=== PATIENT | female | born 2000 | race Caucasian/White ===

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

== ENCOUNTER 2019-12-01 10:57 | Emergency (ER) | payer OTHER ==
[2019-12-01 11:05] VITALS: BP 105/72
[2019-12-01] MEDS ORDERED: ACETAMINOPHEN TAB 500 MG TAB PO STA (11:31)
[2019-12-01] MEDS ORDERED: IBUPROFEN 600 MG TAB PO STA (11:31)
[2019-12-01 11:37] VITALS: RESP 20
--- NOTE | 2019-12-01 11:41 | ED ---
General Adult HPI - General Source: patient, RN notes reviewed Mode of arrival: ambulatory Limitations: no limitations <Luis Powell - Last Filed: 12/01/19 12:54> <Emilia Lawrence - Last Filed: 12/03/19 00:31> - General Chief complaint: ENT Stated complaint: Throat pain Time Seen by Provider: 12/01/19 11:13 - History of Present Illness Initial comments: 19-year-old female with a past medical history of asthma presents to the emergency department for a chief complaint of cough and sore throat. Patient states that she has had a cough for the past 2 days. It is nonproductive. She does not have shortness of breath. She also has a sore throat. States that her sore throat is the most bothersome symptom. Patient denies neck stiffness. Denies difficulty swallowing but does state it is painful to swallow. Denies difficulty breathing. No trismus or drooling. No stridor. Patient did not notice fevers at home but is noted to have a low-grade fever in the emergency room. She does not have any travel history. No known sick contacts. Patient has no other complaints at this time including shortness of breath, chest pain, abdominal pain, nausea or vomiting, headache, or visual changes. (Luis Powell) - Related Data Home Medications Medication Instructions Recorded Confirmed Albuterol Sulfate [Ventolin HFA] 2 puff INHALATION RT-QID PRN 12/01/19 12/01/19 Previous Rx's Medication Instructions Recorded Amoxicillin 875 mg PO Q12HR #20 tablet 12/01/19 Allergies Allergy/AdvReac Type Severity Reaction Status Date / Time Fish Containing Products Allergy Unknown Rash/Hives Verified 12/01/19 12:10 meningococcal vaccine A and C Allergy Unknown Swelling Verified 12/01/19 12:10 iodine Allergy Rash/Hives Verified 12/01/19 12:10 shellfish derived [Shellfish] Allergy Rash/Hives Verified 12/01/19 12:10 Review of Systems ROS Other: All systems not noted in ROS Statement are negative. <Luis Powell - Last Filed: 12/01/19 12:54> ROS Other: All systems not noted in ROS Statement are negative. <Emilia Lawrence - Last Filed: 12/03/19 00:31> ROS Statement: Those systems with pertinent positive or pertinent negative responses have been documented in the HPI. Past Medical History Past Medical History: Asthma History of Any Multi-Drug Resistant Organisms: None Reported Past Surgical History: No Surgical Hx Reported Past Anesthesia/Blood Transfusion Reactions: No Reported Reaction Past Psychological History: Depression Smoking Status: Current every day smoker Past Alcohol Use History: None Reported Past Drug Use History: None Reported - Past Family History Mother Family Medical History: Asthma Additional Family Medical History / Comment(s): previous stroke <Luis Powell - Last Filed: 12/01/19 12:54> General Exam Limitations: no limitations General appearance: alert, in no apparent distress Head exam: Present: atraumatic, normocephalic, normal inspection Eye exam: Present: normal appearance, PERRL, EOMI. Absent: scleral icterus, conjunctival injection, periorbital swelling ENT exam: Present: normal exam, mucous membranes moist, TM's normal bilaterally, normal external ear exam. Absent: normal oropharynx (Patient does have bilateral tonsillar exudates. Uvula is midline. Tonsillar pillars are symmetric. There is no evidence for abscess.) Neck exam: Present: normal inspection, full ROM. Absent: tenderness, meningismus, lymphadenopathy Respiratory exam: Present: normal lung sounds bilaterally. Absent: respiratory distress, wheezes, rales, rhonchi, stridor Cardiovascular Exam: Present: regular rate, normal rhythm, normal heart sounds. Absent: systolic murmur, diastolic murmur, rubs, gallop, clicks GI/Abdominal exam: Present: soft, normal bowel sounds. Absent: distended, tenderness, guarding, rebound, rigid Neurological exam: Present: alert Psychiatric exam: Present: normal affect, normal mood <Luis Powell P - Last Filed: 12/01/19 12:54> Course Vital Signs 12/01/19 12/01/19 12/01/19 11:03 11:31 13:20 Temperature 100.0 F H 98.0 F Pulse Rate 101 H 100 Respiratory 18 20 20 Rate Blood Pressure 105/72 O2 Sat by Pulse 99 100 Oximetry Medical Decision Making <Luis Powell - Last Filed: 12/01/19 12:54> <Emilia Lawrence - Last Filed: 12/03/19 00:31> - Medical Decision Making Vitals are stable although patient does have a low-grade temperature of 100.0. Reflexive tachycardia likely. She is 99% on room air. She is in no acute distress. She is resting comfortably sitting at a chair beside the bed. Exam did reveal bilateral tonsillar exudates without any evidence of peritonsillar abscess. Strep is negative. However given tonsillar exudates patient will be treated and culture will be sent to the lab. Chest x-ray shows no acute process. Patient will be given a dose of Decadron given her history of asthma as well as the pharyngitis. I did discuss following up with primary care. If patient should have any worsening symptoms she is to return here to the emergency room. (Luis Powell) I was available for consultation in the emergency department. The history and p hysical exam were done by the midlevel provider. I was consulted for this patients care. I reviewed the case with the midlevel provider and based on their presentation of the patient, I agree with the assessment, medical decision making and plan of care as documented. Chart was dictated using [employer] dictation software. Attempts were made to correct any dictation errors however some typographical errors may persist. Patient was seen during a national state of emergency due to the Covid-19 pandemic. (Emilia Lawrence) - Lab Data Lab Results 12/01/19 12/01/19 Range/Units 11:30 11:30 Coronavirus (PCR) Not Detected (Not Detected) Group A Strep Rapid Negative (Negative) Disposition Is patient prescribed a controlled substance at d/c from ED?: No Time of Disposition: 12:57 <Luis Powell - Last Filed: 12/01/19 12:54> <Emilia Lawrence - Last Filed: 12/03/19 00:31> Clinical Impression: Pharyngitis Disposition: HOME SELF-CARE Condition: Good Instructions (If sedation given, give patient instructions): Pharyngitis (ED) Additional Instructions: Please take antibiotic as directed. These were prescribed to your pharmacy electronically. Please try warm liquids for comfort. Take Tylenol for pain and fever. You may also take [id number]-[id number] cold medications but make sure not to take too much Tylenol with these. Follow up with primary care in 1-2 days. Return here to the emergency room should you have any worsening symptoms. Prescriptions: Amoxicillin 875 mg PO Q12HR #20 tablet Referrals: Gale Villanueva MD [REFERRING] - 1-2 days
--- NOTE | 2019-12-01 12:44 | XR ---
EXAMINATION TYPE: XR chest 1V portable DATE OF EXAM: 12/01/2019 COMPARISON: 05/16/2018 HISTORY: Chest pain TECHNIQUE: Single frontal view of the chest is obtained. FINDINGS: There is no focal air space opacity, pleural effusion, or pneumothorax seen. The cardiac silhouette size is within normal limits. The osseous structures are intact. IMPRESSION: 1. No acute process.
[2019-12-01] MEDS ORDERED: DEXAMETHASONE 4 MG TAB PO STA (12:50)
[2019-12-01] MEDS ORDERED: AMOXICILLIN 875 MG TAB PO STA (12:51)
[2019-12-01 13:21] VITALS: PULSE 100; TEMP 98
== END 2019-12-01 13:21 | disposition home or self-care (01) ==
LOC: EC 10:57
DX: J02.9 Acute pharyngitis, unspecified (principal); F17.200 Nicotine dependence, unspecified, uncomplicated; Z91.013 Allergy to seafood; Z88.7 Allergy status to serum and vaccine; Z91.048 Other nonmedicinal substance allergy status
CPT/HCPCS: 99283; 87081; 87430; 71045; U0003; J8540

== ENCOUNTER 2020-01-09 17:15 | Emergency (ER) | payer BC, OTHER ==
[2020-01-09 17:25] VITALS: BP 124/79; PULSE 90; RESP 20; TEMP 98.6
[2020-01-09] MEDS ORDERED: ERYTHROMYCIN 5 MG/GM OPHTH OINT 3.5 GM TUBE LEFT EYE STA (18:23)
--- NOTE | 2020-01-09 19:33 | ED ---
General Adult HPI - General Chief complaint: Eye Problems Stated complaint: eye swelling Time Seen by Provider: 01/09/20 17:38 Source: patient, RN notes reviewed, old records reviewed Mode of arrival: ambulatory Limitations: no limitations - History of Present Illness Initial comments: 20-year-old female patient proceeded for chief complaint of left upper eyelid redness and some drainage. States that her vision is at baseline. She is not contact lens user. She denies any other complaints. Systemic: Pt denies fatigue, fever/chills, rash. Pt denies weakness, night sweats, weight loss. Neuro: Pt denies headache, visual disturbances, syncope or pre-syncope. HEENT: Pt denies ocular discharge or irritation, otalgia, rhinorrhea, pharyngitis or notable lymphadenopathy. Cardiopulmonary: Pt denies chest pain, SOB, heart palpitations, dyspnea on exertion. Abdominal/GI: Pt denies abdominal pain, n/v/d. : Pt denies dysuria, burning w/ urination, frequency/urgency. Denies new onset urinary or bowel incontinence. MSK: Pt denies myalgia, loss of strength or function in extremities. Neuro: Pt denies new onset weakness, paresthesias. - Related Data Home Medications Medication Instructions Recorded Confirmed Albuterol Sulfate [Ventolin HFA] 2 puff INHALATION RT-QID PRN 12/01/19 12/01/19 Previous Rx's Medication Instructions Recorded Amoxicillin 875 mg PO Q12HR #20 tablet 12/01/19 Allergies Allergy/AdvReac Type Severity Reaction Status Date / Time Fish Containing Products Allergy Unknown Rash/Hives Verified 01/09/20 17:25 meningococcal vaccine A and C Allergy Unknown Swelling Verified 01/09/20 17:25 iodine Allergy Rash/Hives Verified 01/09/20 17:25 shellfish derived [Shellfish] Allergy Rash/Hives Verified 01/09/20 17:25 Review of Systems ROS Statement: Those systems with pertinent positive or pertinent negative responses have been documented in the HPI. ROS Other: All systems not noted in ROS Statement are negative. Past Medical History Past Medical History: Asthma History of Any Multi-Drug Resistant Organisms: None Reported Past Surgical History: No Surgical Hx Reported Past Anesthesia/Blood Transfusion Reactions: No Reported Reaction Past Psychological History: Depression Smoking Status: Current every day smoker Past Alcohol Use History: None Reported Past Drug Use History: None Reported - Past Family History Mother Family Medical History: Asthma Additional Family Medical History / Comment(s): previous stroke General Exam - General Exam Comments Initial Comments: Constitutional: NAD, AOX3, Pt has pleasant affect. HEENT: NC/AT, trachea midline, neck supple, no lymphadenopathy. External ears appear normal, without discharge. Mucous membranes moist. Eyes PERRLA, EOM intact. There is no scleral icterus. There is no injection, there is a hordeo lum noted to the left upper eyelid. No pallor noted. Cardiopulmonary: RRR, no murmurs, rubs or gallops, no JVD noted. Lungs CTAB in anterior and posterior christopher. No peripheral edema. Neuro: CN II-XII grossly intact. No nuchal rigidity. MSK: Full active ROM in upper and lower extremities, Limitations: no limitations Course Vital Signs 01/09/20 17:23 Temperature 98.6 F Pulse Rate 90 Respiratory 20 Rate Blood Pressure 124/79 O2 Sat by Pulse 99 Oximetry Medical Decision Making - Medical Decision Making 20-year-old female patient presents to ED for evaluation of eyelid swelling. Physical exam consistent with hordeolum. Patient felt signs are stable, afebrile. Patient shade on erythromycin ointment. Discharge the patient ophthalmology and primary care follow-up tomorrow. Return to ER if any worsening symptoms. Case discussed with Dr. Rogers. Disposition Clinical Impression: Hordeolum Disposition: HOME SELF-CARE Condition: Stable Instructions (If sedation given, give patient instructions): Sahil (ED) Additional Instructions: use warm compresses. Avoid eye makeup. Keep eye clean. Follow-up with setup technician tomorrow. Use erythromycin ointment every 6 hours one half inch for the next 5 days. Follow up with PCP in 1-2 days. Return to ED with any worsening symptoms. Is patient prescribed a controlled substance at d/c from ED?: No Referrals: None,Stated [Primary Care Provider] - 1-2 days Gale Villanueva MD [REFERRING] - 1-2 days Nelson Zarate MD [STAFF PHYSICIAN] - 1-2 days
== END 2020-01-09 19:49 | disposition home or self-care (01) ==
LOC: EC 17:15
DX: H00.014 Hordeolum externum left upper eyelid (principal); F17.200 Nicotine dependence, unspecified, uncomplicated; J45.909 Unspecified asthma, uncomplicated; Z79.51 Long term (current) use of inhaled steroids; Z91.013 Allergy to seafood; Z88.7 Allergy status to serum and vaccine; Z91.048 Other nonmedicinal substance allergy status
CPT/HCPCS: 99283

== ENCOUNTER 2020-04-12 01:46 | Emergency (ER) | payer BC, OTHER ==
[2020-04-12 01:57] VITALS: BP 140/89; PULSE 115; TEMP 98.7
[2020-04-12 02:16] VITALS: RESP 20
--- NOTE | 2020-04-12 02:51 | XR ---
EXAM: XR Chest, 2 Views CLINICAL HISTORY: ITS.REASON XR Reason: cough TECHNIQUE: Frontal and lateral views of the chest. COMPARISON: CXR 12/01/19 FINDINGS: Lungs: Unremarkable. No consolidation. Pleural space: Unremarkable. No pleural effusion or pneumothorax. Heart: Unremarkable. No cardiomegaly or pulmonary vascular congestion. Mediastinum: Unremarkable. Bones/joints: Unremarkable. IMPRESSION: No evidence of acute cardiopulmonary disease.
--- NOTE | 2020-04-12 03:14 | ED ---
General Adult HPI - General Source: patient, RN notes reviewed, old records reviewed Mode of arrival: ambulatory Limitations: no limitations <Tyler Macias - Last Filed: 04/12/20 03:14> <Jose De Jesus Dillon - Last Filed: 04/12/20 03:55> - General Chief complaint: Upper Respiratory Infection Stated complaint: ENT, headache Time Seen by Provider: 04/12/20 02:07 - History of Present Illness Initial comments: 20-year-old female patient to ED for cough congestion last 3 days. No difficulty breathing of fever denies any other acute complaints. Daughter has similar symptoms. Systemic: Pt denies fatigue, fever/chills, rash. Pt denies weakness, night sweats, weight loss. Neuro: Pt denies headache, visual disturbances, syncope or pre-syncope. HEENT: Pt denies ocular discharge or irritation, otalgia, rhinorrhea, pharyngitis or notable lymphadenopathy. Cardiopulmonary: Pt denies chest pain, SOB, heart palpitations, dyspnea on exertion. Abdominal/GI: Pt denies abdominal pain, n/v/d. : Pt denies dysuria, burning w/ urination, frequency/urgency. Denies new onset urinary or bowel incontinence. MSK: Pt denies myalgia, loss of strength or function in extremities. Neuro: Pt denies new onset weakness, paresthesias. (Tyler Macias) - Related Data Home Medications Medication Instructions Recorded Confirmed Albuterol Sulfate [Ventolin HFA] 2 puff INHALATION RT-QID PRN 12/01/19 12/01/19 Previous Rx's Medication Instructions Recorded Amoxicillin 875 mg PO Q12HR #20 tablet 12/01/19 Allergies Allergy/AdvReac Type Severity Reaction Status Date / Time Fish Containing Products Allergy Unknown Rash/Hives Verified 04/12/20 01:57 meningococcal vaccine A and C Allergy Unknown Swelling Verified 04/12/20 01:57 iodine Allergy Rash/Hives Verified 04/12/20 01:57 shellfish derived [Shellfish] Allergy Rash/Hives Verified 04/12/20 01:57 Review of Systems ROS Other: All systems not noted in ROS Statement are negative. <Tyler Macias - Last Filed: 04/12/20 03:14> ROS Other: All systems not noted in ROS Statement are negative. <Jose De Jesus Dillon - Last Filed: 04/12/20 03:55> ROS Statement: Those systems with pertinent positive or pertinent negative responses have been documented in the HPI. Past Medical History Past Medical History: Asthma History of Any Multi-Drug Resistant Organisms: None Reported Past Surgical History: No Surgical Hx Reported Past Anesthesia/Blood Transfusion Reactions: No Reported Reaction Past Psychological History: Depression Smoking Status: Current every day smoker Past Alcohol Use History: None Reported Past Drug Use History: None Reported - Past Family History Mother Family Medical History: Asthma Additional Family Medical History / Comment(s): previous stroke <Tyler Macias - Last Filed: 04/12/20 03:14> General Exam Limitations: no limitations <Tyler Macias - Last Filed: 04/12/20 03:14> - General Exam Comments Initial Comments: Constitutional: NAD, AOX3, Pt has pleasant affect. HEENT: NC/AT, trachea midline, neck supple, no lymphadenopathy. External ears appear normal, without discharge. Mucous membranes moist. Eyes PERRLA, EOM intact. There is no scleral icterus. No pallor noted. Cardiopulmonary: RRR, no murmurs, rubs or gallops, no JVD noted. Lungs CTAB in anterior and posterior christopher. No peripheral edema. Abdominal exam: Abdomen soft and non-distended. Neuro: CN II-XII grossly intact. No nuchal rigidity. MSK: Full active ROM in upper and lower extremities, 5/5 stregnth. (Tyler Macias) Course Vital Signs 04/12/20 04/12/20 01:54 02:14 Temperature 98.7 F Pulse Rate 115 H Respiratory 18 20 Rate Blood Pressure 140/89 O2 Sat by Pulse 98 Oximetry Medical Decision Making <Tyler Macias - Last Filed: 04/12/20 03:14> <Jose De Jesus Dillon - Last Filed: 04/12/20 03:55> - Medical Decision Making 20 year old female patient to ED for cough. Patient daughter has similar symptoms. Denies any other complaints. Physical exam negative for acute pathology. CXR negative for acute pathology. Patient signed out to Dr. Dillon pending laboratory investigations. (Tyler Macias) Patient with cough and congestion, chest x-ray is negative, influenza and coronavirus testing is negative. Suspect this patient has a viral upper respiratory infection. Coronavirus is still on the differential although the test is negative. She is instructed to quarantine herself and her daughter. Maintain oral hydration, return with worsening or changing symptoms. (Jose De Jesus Dillon) - Lab Data Lab Results 04/12/20 Range/Units 02:49 Coronavirus (PCR) Not Detected (Not Detectd) Influenza Type A RNA Not Detected (Not Detectd) Influenza Type B (PCR) Not Detected (Not Detectd) Disposition <Tyler Macias - Last Filed: 04/12/20 03:14> Is patient prescribed a controlled substance at d/c from ED?: No Time of Disposition: 03:55 <Jose De Jesus Dillon - Last Filed: 04/12/20 03:55> Clinical Impression: Viral infection Disposition: HOME SELF-CARE Condition: Good Instructions (If sedation given, give patient instructions): Upper Respiratory Infection (ED) Additional Instructions: Please quarantine herself as coronavirus testing is not 100%, for 14 days. Referrals: None,Stated [Primary Care Provider] - 1-2 days Eldon Pak [STAFF PHYSICIAN] - 1-2 days
[2020-04-12 03:47] LABS: SARS-CoV-2 RNA Rapid Abbott Not Detected (Not Detectd)
== END 2020-04-12 04:14 | disposition home or self-care (01) ==
LOC: EC 01:46
DX: B34.9 Viral infection, unspecified (principal); J45.909 Unspecified asthma, uncomplicated; F17.200 Nicotine dependence, unspecified, uncomplicated; Z91.013 Allergy to seafood; Z88.7 Allergy status to serum and vaccine; Z91.048 Other nonmedicinal substance allergy status; Z20.828 Contact with and (suspected) exposure to other viral communicable diseases
CPT/HCPCS: 71046; 87502; 87635; 99284

== ENCOUNTER 2021-06-07 23:09 | Emergency (ER) | payer BC, OTHER ==
[2021-06-07 23:19] VITALS: TEMP 98.2
[2021-06-08] MEDS ORDERED: cefTRIAXone 250 MG VIAL IM STA (00:29)
[2021-06-08] MEDS ORDERED: AZITHROMYCIN 500 MG TAB PO STA (00:30)
--- NOTE | 2021-06-08 00:33 | ED ---
General Adult HPI - General Chief complaint: Recheck/Abnormal Lab/Rx Stated complaint: Female Time Seen by Provider: 06/07/21 23:23 Source: patient, RN notes reviewed Mode of arrival: ambulatory Limitations: no limitations - History of Present Illness Initial comments: This is a pleasant 21-year-old female who comes to the ER complaining of vaginal discharge, she states has been going on for one or 2 weeks. She denies any fever or chills. She denies any pelvic pain or abdominal pain. No shortness of breath or chest pain. No dysuria. Patient is sexually active. Does admit to unprotected sex. States that her significant other has been having sex with another partner. IVR partner was confirmed positive for herpes. Patient denies any sores or lesions. Patient unsure if she could be . No chest pain or shortness of breath. No skin rashes or lesions. - Related Data Home Medications Medication Instructions Recorded Confirmed Albuterol Sulfate [Ventolin HFA] 2 puff INHALATION RT-QID PRN 12/01/19 12/01/19 Previous Rx's Medication Instructions Recorded Amoxicillin 875 mg PO Q12HR #20 tablet 12/01/19 Doxycycline Monohydrate [Monodox] 100 mg PO Q12HR #14 cap 06/08/21 Allergies Allergy/AdvReac Type Severity Reaction Status Date / Time Fish Containing Products Allergy Unknown Rash/Hives Verified 06/07/21 23:19 meningococcal vaccine A and C Allergy Unknown Swelling Verified 06/07/21 23:19 iodine Allergy Rash/Hives Verified 06/07/21 23:19 shellfish derived [Shellfish] Allergy Rash/Hives Verified 06/07/21 23:19 Review of Systems ROS Statement: Those systems with pertinent positive or pertinent negative responses have been documented in the HPI. ROS Other: All systems not noted in ROS Statement are negative. Past Medical History Past Medical History: Asthma History of Any Multi-Drug Resistant Organisms: None Reported Past Surgical History: No Surgical Hx Reported Past Anesthesia/Blood Transfusion Reactions: No Reported Reaction Past Psychological History: Depression Smoking Status: Current every day smoker Past Alcohol Use History: None Reported Past Drug Use History: None Reported - Past Family History Mother Family Medical History: Asthma Additional Family Medical History / Comment(s): previous stroke General Exam Limitations: no limitations General appearance: alert, in no apparent distress Head exam: Present: atraumatic, normocephalic, normal inspection Eye exam: Present: normal appearance, PERRL, EOMI. Absent: scleral icterus, conjunctival injection, periorbital swelling ENT exam: Present: normal exam, mucous membranes moist Neck exam: Present: normal inspection. Absent: tenderness, meningismus, lymphadenopathy Respiratory exam: Present: normal lung sounds bilaterally. Absent: respiratory distress, wheezes, rales, rhonchi, stridor Cardiovascular Exam: Present: regular rate, normal rhythm, normal heart sounds. Absent: systolic murmur, diastolic murmur, rubs, gallop, clicks GI/Abdominal exam: Present: soft, normal bowel sounds. Absent: distended, tenderness, guarding, rebound, rigid External exam: Present: normal external exam. Absent: erythema, swelling, lesions, lacerations, ecchymosis Speculum exam: Present: vaginal discharge, cervical discharge. Absent: erythema, vaginal bleeding, foreign body, tissue, laceration By manual exam: Present: normal by manual exam, other (Genital swab sent. 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 Absent: cervical motion tenderness, adnexal tenderness, adnexal mass, uterine enlargement, uterine tenderness Extremities exam: Present: normal inspection, full ROM, normal capillary refill. Absent: tenderness, pedal edema, joint swelling, calf tenderness Back exam: Present: normal inspection Neurological exam: Present: alert, oriented X3, CN II-XII intact Psychiatric exam: Present: normal affect, normal mood Skin exam: Present: warm, dry, intact, normal color. Absent: rash Course Vital Signs 06/07/21 23:16 Temperature 98.2 F Pulse Rate 105 H Respiratory 20 Rate Blood Pressure 133/73 O2 Sat by Pulse 100 Oximetry Medical Decision Making - Medical Decision Making Patient is supposed to her partner who in turn was exposed to genital herpes. STD testing. Patient does have evidence of cervicitis. Ceftriaxone 500 mg IM and azithromycin 1 g by mouth ordered. If the patient is not . We will cover doxycycline and metronidazole. Patient spritzing test is negative. Patient counseled on STDs. Counseled on testing which was ordered here. All questions answered. Pelvic rest and no sexual activity until symptoms have resolved and testings obtained. Patient was given follow-up with [facility] care physician. Patient was told to return to the ER for any signs or symptoms worsen. Told to return immediately if any other problems arise. All questions answered. Treatment plan discussed. Patient in agreement Supervising physician is Dr. Qiu - Lab Data Lab Results 06/07/21 06/08/21 Range/Units 23:45 00:30 Urine HCG, Qual Not Detected (Not Detectd) Trichomonas Ag (Rapid) Negative (Negative) Disposition Clinical Impression: Cervicitis, Vaginal discharge Disposition: HOME SELF-CARE Condition: Stable Instructions (If sedation given, give patient instructions): Cervicitis (ED), Sexually Transmitted Diseases (ED), Condom Use (ED) Additional Instructions: No sexual activity until the symptoms have cleared and the testing is obtained. Some of your testing is pending. They should be back in about 48 hours. He can call back for the results. Make an appointment with the provided physician. Follow-up with your regular physician as directed. Return to the ER immediately if any symptoms worsen, new symptoms arise, or any other problems develop. Prescriptions: Doxycycline Monohydrate [Monodox] 100 mg PO Q12HR #14 cap Is patient prescribed a controlled substance at d/c from ED?: No Referrals: Eldon Pak [STAFF PHYSICIAN] - 06/11/21 Time of Disposition: 01:27
[2021-06-08] MEDS ORDERED: metroNIDAZOLE 500 MG TAB PO STA (01:26)
[2021-06-08 01:40] VITALS: BP 136/85; PULSE 98; RESP 18
== END 2021-06-08 01:39 | disposition home or self-care (01) ==
LOC: EC 23:09
DX: N72 Inflammatory disease of cervix uteri (principal); F17.200 Nicotine dependence, unspecified, uncomplicated; J45.909 Unspecified asthma, uncomplicated; Z91.013 Allergy to seafood; Z88.7 Allergy status to serum and vaccine; Z91.041 Radiographic dye allergy status
CPT/HCPCS: 36415; 87535; 86696; 86694; 86695; 81025; 87808; 87491; 87591; 86780; 99283; 96372; J0696

== ENCOUNTER 2021-11-24 07:04 | Emergency (ER) | payer OTHER ==
[2021-11-24 07:08] VITALS: RESP 18; TEMP 98.1
[2021-11-24] MEDS ORDERED: ACET/COD 300 MG/30 MG STARTER PACK 6 TAB BTL PO STA (07:18)
[2021-11-24] MEDS ORDERED: DEXAMETHASONE SOD PHOSPHATE 10 MG/ML 1 ML VIAL IM STA (07:18)
--- NOTE | 2021-11-24 07:20 | ED ---
ENT HPI - General Chief complaint: Dental/Oral Stated complaint: Dental Pain Time Seen by Provider: 11/24/21 07:09 Source: patient, RN notes reviewed Mode of arrival: ambulatory Limitations: no limitations - History of Present Illness Initial comments: This is a 21-year-old female who presents to the emergency department for dental pain. Patient states that the pain is on the right upper side of her mouth, she cannot localize this to one tooth. States that the pain is now moving into the jaw and the ear and it is difficult for her to open her mouth. Denies any fevers or chills. She no longer has a dentist, she was discharged from a prior office for missing too many appointments. Denies any fevers, chills, sore throat, cough, dyspnea, chest pain, palpitations, abdominal pain, nausea, vomiting, diarrhea, back pain, or headaches. MD complaint: tooth pain, ear pain Onset/Timin -: days(s) Location: R ear Context- Dental: history of dental caries, poor dental care Associated Symptoms: gum swelling, toothache - Related Data Home Medications Medication Instructions Recorded Confirmed Albuterol Sulfate [Ventolin HFA] 2 puff INHALATION RT-QID PRN 12/01/19 12/01/19 Previous Rx's Medication Instructions Recorded Amoxicillin 875 mg PO Q12HR #20 tablet 12/01/19 Doxycycline Monohydrate [Monodox] 100 mg PO Q12HR #14 cap 06/08/21 Amoxicillin 875 mg PO Q12HR 7 Days #14 tablet 11/24/21 Allergies Allergy/AdvReac Type Severity Reaction Status Date / Time Fish Containing Products Allergy Unknown Rash/Hives Verified 11/24/21 07:08 meningococcal vaccine A and C Allergy Unknown Swelling Verified 11/24/21 07:08 iodine Allergy Rash/Hives Verified 11/24/21 07:08 shellfish derived [Shellfish] Allergy Rash/Hives Verified 11/24/21 07:08 Review of Systems ROS Statement: Those systems with pertinent positive or pertinent negative responses have been documented in the HPI. ROS Other: All systems not noted in ROS Statement are negative. Past Medical History Past Medical History: Asthma History of Any Multi-Drug Resistant Organisms: None Reported Past Surgical History: No Surgical Hx Reported Past Anesthesia/Blood Transfusion Reactions: No Reported Reaction Past Psychological History: Depression Smoking Status: Current every day smoker Past Alcohol Use History: None Reported Past Drug Use History: None Reported - Past Family History Mother Family Medical History: Asthma Additional Family Medical History / Comment(s): previous stroke General Exam Limitations: no limitations General appearance: alert, in distress Head exam: Present: atraumatic, normocephalic, normal inspection ENT exam: Present: TM's normal bilaterally, normal external ear exam Expanded Teeth exam: Present: dental caries, dental tenderness # (4-6) Throat exam: normal inspection. negative: tonsillar erythema, tonsillomegaly, tonsillar exudate Respiratory exam: Present: normal lung sounds bilaterally. Absent: respiratory distress, wheezes, rales, rhonchi, stridor Cardiovascular Exam: Present: regular rate, normal rhythm, normal heart sounds. Absent: systolic murmur, diastolic murmur, rubs, gallop, clicks Neurological exam: Present: alert, oriented X3, CN II-XII intact Psychiatric exam: Present: normal affect, normal mood Skin exam: Present: warm, dry, intact, normal color. Absent: rash Course Vital Signs 11/24/21 07:05 Temperature 98.1 F Pulse Rate 64 Respiratory 18 Rate Blood Pressure 125/80 O2 Sat by Pulse 100 Oximetry Medical Decision Making - Medical Decision Making This is a 21-year-old female who presents to the emergency department for dental pain. There is no palpable abscess for drainage. Rx for amoxicillin sent to her pharmacy. IM Decadron administered in the emergency department for pain and swelling. Advised her to alternate with [id number] ibuprofen and Tylenol as needed for pain relief. Also instructed her to become established with a dentist as soon as possible for definitive management of symptoms. We also discussed practicing good oral hygiene to avoid similar issues in the future. Return precautions reviewed in depth, the patient is instructed to return to the emergency department with any new, worsening, or concerning symptoms. Patient verbalized understanding. This case was discussed in detail with the attending ED physician. Presentation, findings, and treatment plan discussed in detail as well. Disposition Clinical Impression: Dental infection Disposition: HOME SELF-CARE Instructions (If sedation given, give patient instructions): Toothache (ED) Additional Instructions: Return to the emergency department with any new, worsening, or concerning symptoms. Alternate with [id number] Tylenol and ibuprofen as needed for pain. Make sure that you become established with a dentist and follow up as soon as possible for definitive management of symptoms. Prescriptions: Amoxicillin 875 mg PO Q12HR 7 Days #14 tablet Is patient prescribed a controlled substance at d/c from ED?: No Referrals: None,Stated [Primary Care Provider] - 1-2 days
[2021-11-24 07:39] VITALS: BP 126/71; PULSE 68
== END 2021-11-24 07:41 | disposition home or self-care (01) ==
LOC: EC 07:04
DX: K04.7 Periapical abscess without sinus (principal); J45.909 Unspecified asthma, uncomplicated; F17.200 Nicotine dependence, unspecified, uncomplicated; Z91.013 Allergy to seafood; Z91.041 Radiographic dye allergy status; Z91.048 Other nonmedicinal substance allergy status
CPT/HCPCS: 99282; 96372; J1100

== ENCOUNTER 2022-04-20 22:29 | Emergency (ER) | payer OTHER ==
[2022-04-21] MEDS ORDERED: DEXAMETHASONE SOD PHOSPHATE 10 MG/ML 1 ML VIAL IM STA (00:13)
--- NOTE | 2022-04-21 00:14 | ED ---
URI HPI - General Chief Complaint: Upper Respiratory Infection Stated Complaint: STEPHY,Ear Infection Time Seen by Provider: 04/21/22 00:04 Source: patient, RN notes reviewed, old records reviewed Mode of arrival: ambulatory Limitations: no limitations - History of Present Illness Initial Comments: This is a nontoxic-appearing 22-year-old female presents to the emergency room with cough, congestion, fevers and diarrhea that started yesterday. Denies any abdominal pain. Patient states that her daughter has RSV and viral pneumonia. Patient has a history of asthma and is a half a pack a day smoker. MD Complaint: fever, cough, nasal congestion, other (Diarrhea) -: days(s) (2) Severity scale (1-10): 6 Quality: aching Consistency: constant Improves With: nothing Context: sick contacts (Daughter has RSV) Treatments Prior to Arrival: Acetaminophen - Related Data Home Medications Medication Instructions Recorded Confirmed Albuterol Sulfate [Ventolin HFA] 2 puff INHALATION RT-QID PRN 12/01/19 12/01/19 Previous Rx's Medication Instructions Recorded Amoxicillin 875 mg PO Q12HR #20 tablet 12/01/19 Doxycycline Monohydrate [Monodox] 100 mg PO Q12HR #14 cap 06/08/21 Amoxicillin 875 mg PO Q12HR 7 Days #14 tablet 11/24/21 Albuterol Inhaler [Ventolin Hfa 1 - 2 puff INHALATION Q6H PRN #1 04/21/22 Inhaler] unit Allergies Allergy/AdvReac Type Severity Reaction Status Date / Time Fish Containing Products Allergy Unknown Rash/Hives Verified 04/20/22 22:45 meningococcal vaccine A and C Allergy Unknown Swelling Verified 04/20/22 22:45 iodine Allergy Rash/Hives Verified 04/20/22 22:45 shellfish derived [Shellfish] Allergy Rash/Hives Verified 04/20/22 22:45 Review of Systems ROS Statement: Those systems with pertinent positive or pertinent negative responses have been documented in the HPI. ROS Other: All systems not noted in ROS Statement are negative. Past Medical History Past Medical History: Asthma History of Any Multi-Drug Resistant Organisms: None Reported Past Surgical History: No Surgical Hx Reported Past Anesthesia/Blood Transfusion Reactions: No Reported Reaction Past Psychological History: Depression Smoking Status: Current every day smoker Past Alcohol Use History: None Reported Past Drug Use History: Marijuana - Past Family History Mother Family Medical History: Asthma Additional Family Medical History / Comment(s): previous stroke General Exam Limitations: no limitations General appearance: alert, in no apparent distress Head exam: Present: atraumatic, normocephalic, normal inspection Eye exam: Present: normal appearance. Absent: scleral icterus, conjunctival injection, periorbital swelling, periorbital tenderness ENT exam: Present: mucous membranes moist Expanded Mouth exam: Present: tongue normal, tongue elevation. Absent: drooling, trismus, muffled voice Throat exam: negative: tonsillar erythema, tonsillar exudate Neck exam: Present: full ROM. Absent: tenderness, meningismus, lymphadenopathy Respiratory exam: Present: normal lung sounds bilaterally. Absent: respiratory distress, wheezes, rales, rhonchi, stridor, chest wall tenderness, accessory muscle use Cardiovascular Exam: Present: regular rate, normal heart sounds GI/Abdominal exam: Present: soft. Absent: distended, tenderness, rigid Extremities exam: Present: normal inspection, full ROM, normal capillary refill. Absent: tenderness, pedal edema Back exam: Present: full ROM. Absent: tenderness, CVA tenderness (R), CVA tenderness (L), paraspinal tenderness, vertebral tenderness, rash noted Neurological exam: Present: alert, oriented X3, normal gait Psychiatric exam: Present: normal affect, normal mood Skin exam: Present: warm, dry, normal color. Absent: cyanosis, diaphoretic, petechiae, pallor Course Vital Signs 04/20/22 04/21/22 04/21/22 22:43 00:00 00:23 Temperature 97.9 F 98.7 F Pulse Rate 84 91 Respiratory 18 18 18 Rate Blood Pressure 131/86 124/78 O2 Sat by Pulse 100 100 Oximetry Medical Decision Making - Medical Decision Making Patient presents with complaints of cough, congestion and fever since yesterday. Daughter is positive for RSV. Influenza coronavirus and RSV swabs are negative. Chest x-ray interpreted by me shows no evidence of consolidation. Trachea is midline. Heart normal size. Radiologist's interpretation normal chest no adverse change. This is likely a viral illness. She was given DuoNeb treatment and Decadron for her cough with asthma. Lung sounds are clear. Oxygen saturation 100%. She was given a prescription for an albuterol inhaler. She was directed to follow up with primary care doctor and return to emergency room with any new or concerning symptoms. She is agreeable to this plan of care. Case discussed with Dr. Qiu - Lab Data Lab Results 04/20/22 04/20/22 04/20/22 Range/Units 22:47 23:36 23:36 Coronavirus (PCR) Not Detected (Not Detectd) Influenza Type A RNA Not Detected (Not Detectd) Influenza Type B (PCR) Not Detected (Not Detectd) RSV (PCR) Negative (Negative) Disposition Clinical Impression: Acute upper respiratory infection Disposition: HOME SELF-CARE Condition: Good Instructions (If sedation given, give patient instructions): Upper Respiratory Infection (ED) Additional Instructions: Increase your fluid intake. Tylenol and or Motrin as needed for any fevers or discomfort. Follow-up with the primary care doctor next week. Return to the emergency room with any new or concerning symptoms. Remember to stay at home until you are without a fever for 24 hours. Prescriptions: Albuterol Inhaler [Ventolin Hfa Inhaler] 1 - 2 puff INHALATION Q6H PRN #1 unit PRN Reason: Wheezing Is patient prescribed a controlled substance at d/c from ED?: No Referrals: None,Stated [Primary Care Provider] - 1-2 days Time of Disposition: 01:01
[2022-04-21] MEDS ORDERED: IPRATROPIUM-ALBUTEROL 3 ML NEB INHALATION STA (00:20)
[2022-04-21 00:23] VITALS: TEMP 98.7
--- NOTE | 2022-04-21 00:54 | XR ---
EXAMINATION TYPE: XR chest 2V DATE OF EXAM: 04/21/2022 COMPARISON: 04/12/2020 HISTORY: Fever and cough TECHNIQUE: 2 views FINDINGS: Heart and mediastinum are normal. Lungs are clear. Diaphragm is normal. Bony thorax is inta ct. IMPRESSION: Normal chest. No adverse change.
[2022-04-21 01:43] VITALS: BP 129/74; PULSE 71; RESP 15
== END 2022-04-21 01:42 | disposition home or self-care (01) ==
LOC: EC 22:29
DX: J06.9 Acute upper respiratory infection, unspecified (principal); J45.909 Unspecified asthma, uncomplicated; F32.A Depression, unspecified; F17.200 Nicotine dependence, unspecified, uncomplicated; F12.90 Cannabis use, unspecified, uncomplicated; Z91.013 Allergy to seafood; Z88.7 Allergy status to serum and vaccine; Z91.041 Radiographic dye allergy status; Z79.899 Other long term (current) drug therapy; Z20.822 Contact with and (suspected) exposure to COVID-19
CPT/HCPCS: 94640; 87502; 87634; 87635; 71046; 99285; 96372; J1100